=== PATIENT | male | born 1940 | race American Indian/Alaskan Native ===

== ENCOUNTER 2021-06-03 11:10 | Observation (INO) | payer MEDICARE ==
--- NOTE | 2021-06-03 12:32 | Short Stay Summary ---
Short Stay Documentation Date of service: 06/03/21 - History H&P: obtained from office - Allergies and Medications Current Medications: Allergies No Known Allergies Allergy (Verified 06/03/21 11:58) Home Medications Medication Instructions Recorded Confirmed Last Taken Type Aspirin [Aspirin BABY CHEW TAB] 81 mg PO DAILY 06/03/21 06/03/21 06/02/21 History 81 mg AtorvaSTATin [Lipitor] 20 mg PO QHS 06/03/21 06/03/21 06/02/21 History 20 mg Losartan/Hydrochlorothiazide 50 mg PO DAILY 06/03/21 06/03/21 06/02/21 History [Losartan-Hctz 50-12.5 mg Tab] 50 mg-12.5 amLODIPine [Norvasc] 10 mg PO DAILY 06/03/21 06/03/21 06/02/21 History 10 mg - Physical exam Integumentary: other (dressing clean dry and intact. Pressure dressing in place) - Brief post op/procedure progress note Date of procedure: 06/03/21 Pre-op diagnosis: PPM implant Post-op diagnosis: same Anesthesia: local Estimated blood loss: minimal - Disposition Condition at discharge: Good Short Stay Discharge Plan Activity: advance as tolerated Diet: low fat, low cholesterol, low salt Wound: keep clean and dry, per your surgeon's advice Additional Instructions: Patient has follow up appointment on 06/13/2021 at 11:30am with Dr. Grey at our [place] location. Patient has follow up appointment on 06/13/2021 at 1:30pm with the Device clinic at our [place] location Follow up with: DEB PEDROZA MD [Primary Care Provider] - 7 Days
[2021-06-03 12:50] LABS: Basophils # (Auto) 0.1 K/mm3 (0.0-0.1); Basophils % (Auto) 0.8 % (0.0-1.8); Eosinophils # (Auto) 0.3 K/mm3 (0.0-0.4); Eosinophils % (Auto) 4.2 % (0.0-4.3); Hemoglobin 14.4 gm/dl (11.8-15.2); Lymphocytes # (Auto) 1.8 K/mm3 (1.2-5.4); Lymphocytes % (Auto) 23.1 % (13.4-35.0); Mean Corpuscular HGB Conc 33 % (32-34); Mean Corpuscular Volume 81 fl (84-94); Monocytes # (Auto) 0.6 K/mm3 (0.0-0.8); Monocytes % (Auto) 7.7 % (0.0-7.3); Platelet Count 223 K/mm3 (140-440); Red Blood Count 5.42 M/mm3 (3.65-5.03); Red Cell Distribution Width 14.9 % (13.2-15.2)
[2021-06-03] MEDS ORDERED: VANCOMYCIN 2,000 MG in SODIUM CHLORIDE 0.9% 500 ML 500 ML IV SCH (13:00)
[2021-06-03] MEDS ORDERED: SODIUM CHLORIDE 0.45% 1000 ML 1,000 ML IV SCH (13:00)
[2021-06-03] MEDS ORDERED: VANCOMYCIN/NS 1 GM/250 ML 1 GM/250 ML BAG IV NR (13:00)
[2021-06-03] MEDS ORDERED: SODIUM CHLORIDE IRRI 1000 ML 1,000 ML, .VANCOMYCIN VIAL 1,000 MG IR SCH (13:00)
[2021-06-03] MEDS ORDERED: SODIUM CHLORIDE IRRI 500 ML 500 ML IR ONE ×2 (13:09→14:52)
[2021-06-03] MEDS ORDERED: LIDOCAINE (1%) 10 MG/1 ML VIAL 20 ML MDV ONE (13:10)
[2021-06-03] MEDS ORDERED: BUPIVACAINE/PF (0.5%) 5 MG/1 ML 30 ML VIAL INFILTRATI ONE (13:10)
[2021-06-03 13:11] LABS: BUN/Creatinine Ratio 15; Blood Urea Nitrogen 17 mg/dL (9-20); Calcium 9.6 mg/dL (8.4-10.2); Hemolysis Index 29
[2021-06-03] MEDS ORDERED: SODIUM CHLORIDE 0.9% 500 ML 500 ML ONE (13:12)
[2021-06-03 13:15] LABS: INR 0.99 (0.87-1.13); Partial Thromboplastin Time 27.5 Sec. (24.2-36.6)
[2021-06-03] MEDS ORDERED: SODIUM CHLORIDE 0.9% 1000 ML 1,000 ML ONE (13:15)
[2021-06-03] MEDS ORDERED: LIDOCAINE MPF (2%) 20 MG/1 ML VIAL 5 ML ONE (13:22)
[2021-06-03] MEDS ORDERED: ONDANSETRON 4 MG/2 ML INJ ONE (13:22)
[2021-06-03] MEDS ORDERED: HYDROmorphone 1 MG/1 ML INJ ONE (13:22)
[2021-06-03] MEDS ORDERED: propofoL 200 MG/20 ML VIAL IV ONE ×5 (13:22→13:23)
[2021-06-03] MEDS ORDERED: KETAMINE/STERILE WATER 50 MG/ML SYRINGE ONE (13:23)
[2021-06-03] MEDS ORDERED: MIDAZOLAM 2 MG/2 ML INJ ONE (13:24)
[2021-06-03] MEDS ORDERED: MIDAZOLAM 5 MG/5 ML INJ MDV IV ONE (13:24)
[2021-06-03] MEDS ORDERED: ePHEDrine SULFATE 50 MG/1 ML INJ ONE (13:26)
--- NOTE | 2021-06-03 14:17 | Anesthesia Day of Surgery ---
Anesthesia Day of Surgery - Day of Surgery Patient Examined: Yes Patient H&P Reviewed: Yes Patient is NPO: Yes
--- NOTE | 2021-06-03 14:17 | Anesthesia Consultation ---
Anesthesia Consult and Med Hx Date of service: 06/03/21 - Airway Anesthetic Teeth Evaluation: Good ROM Head & Neck: Adequate Mental/Hyoid Distance: Adequate Mallampati Class: Class II Intubation Access Assessment: Probably Good - Pre-Operative Health Status ASA Pre-Surgery Classification: ASA3 Proposed Anesthetic Plan: MAC - Pulmonary Hx Smoking: No Hx Respiratory Symptoms: No Hx Sleep Apnea: Yes (+ CPAP) - Cardiovascular System Hx Hypertension: Yes Hx Heart Attack/AMI: No (EF 55-60%, stress test negative for ischemia) Hx Cardia Arrhythmia: Yes (A-flutter; SSS) Hx Pacemaker: No (scheduled for PPM placement today) Hx Internal Defibrillator: No - Central Nervous System CVA: No - Endocrine Hx Renal Disease: No Hx Liver Disease: No Hx Insulin Dependent Diabetes: No Hx Non-Insulin Dependent Diabetes: No Hx Thyroid Disease: No - Other Systems Hx Cancer: Yes (hx prostate ca) Hx Obesity: Yes (BMI 33) - Additional Comments Anesthesia Medical History Comments: No hx anesthetic complications.
[2021-06-03] MEDS ORDERED: .VANCOMYCIN VIAL 1,000 MG in SODIUM CHLORIDE IRRI 1000 ML 1,000 ML IRRIGATION ONE (15:35)
[2021-06-03] MEDS ORDERED: HYDROmorphone 1 MG/1 ML INJ IV PRN (15:59)
[2021-06-03] MEDS ORDERED: HYDROcodone/ACETAMINOPHEN 5-325 MG TAB PO PRN (15:59)
[2021-06-03] MEDS ORDERED: ACETAMINOPHEN 325 MG TAB PO PRN (15:59)
[2021-06-03] MEDS ORDERED: GLYCOPYRROLATE 0.4 MG/2 ML INJ ONE (16:35)
--- NOTE | 2021-06-03 16:44 | Post Anesthesia Evaluation ---
- Post Anesthesia Evaluation Patient Participated: Yes Airway Patent: Yes Stable Respiratory Function: Yes Nausea/Vomiting: No Temp > 96.8F: Yes Pain Manageable: Yes Adequeate Hydration: Yes Anesthesia Complications: No
--- NOTE | 2021-06-03 18:58 | XRay Report ---
CHEST 1 VIEW INDICATION: Pacemaker Postop. COMPARISON: None FINDINGS: Support devices: A 2-lead pacemaker device has been inserted which appears in good position terminati ng in the right atrium and right ventricle. Heart: Within normal limits. Lungs/Pleura: No acute air space or interstitial disease. No pneumothorax is detected. Additional findings: None. IMPRESSION: No acute findings. Signer Name: David Renner Jr, MD Signed: 06/03/2021 6:54 PM Workstation Name: [id number]
[2021-06-03] MEDS: ceFAZolin/NS 1 GM/50 ML 1 GM/50 ML BAG IV SCH (22:23)
[2021-06-04] MEDS: ceFAZolin/NS 1 GM/50 ML 1 GM/50 ML BAG IV SCH (04:34)
[2021-06-04 05:22] LABS: BUN/Creatinine Ratio 14; Blood Urea Nitrogen 15 mg/dL (9-20); Calcium 9.3 mg/dL (8.4-10.2); Hemolysis Index 4
[2021-06-04 09:01] VITALS: BP 167/73
[2021-06-04 09:28] LABS: Hematocrit 43.5 % (35.5-45.6); Hemoglobin 14.4 gm/dl (11.8-15.2); Mean Corpuscular HGB Conc 33 % (32-34); Mean Corpuscular Volume 81 fl (84-94); Platelet Count 213 K/mm3 (140-440); Red Blood Count 5.37 M/mm3 (3.65-5.03); Red Cell Distribution Width 14.9 % (13.2-15.2)
[2021-06-04] MEDS ORDERED: hydroCHLOROthiazide 12.5 MG CAP PO SCH (10:00)
[2021-06-04] MEDS ORDERED: amLODIPine 10 MG TAB PO SCH (10:00)
[2021-06-04] MEDS ORDERED: LOSARTAN 50 MG TAB PO SCH (10:00)
--- NOTE | 2021-06-09 14:13 | Electrocardiograph Report ---
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
--- NOTE | 2021-06-09 14:16 | Electrocardiograph Report ---
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
== END 2021-06-04 12:30 | disposition home or self-care (01) ==
LOC: CATHLABREC 11:10 → 4A 15:59
PROVIDERS: ADMIT Internal Medicine Cardiovascular Disease; ATTEND Internal Medicine Cardiovascular Disease
DX: I49.5 Sick sinus syndrome (principal); I44.0 Atrioventricular block, first degree; I11.0 Hypertensive heart disease with heart failure; I25.10 Atherosclerotic heart disease of native coronary artery without angina pectoris; I48.91 Unspecified atrial fibrillation; I48.92 Unspecified atrial flutter; Z95.0 Presence of cardiac pacemaker
CPT/HCPCS: 33208; 36415; 71045; 80048; 85025; 85027; 85610; 85730; 93005; 96365; 96366; C1769; C1785; C1892; C1898; G0378; J0690; J2405; J2704; J3370; J3490; J7030; J7040; J1170; J2250; J7120; Q9967